=== PATIENT | female | born 1965 | race Caucasian/White ===

== ENCOUNTER 2020-07-08 11:00 | Outpatient (RCR) | payer OTHER, SELFPAY | END 2020-08-05 17:18 | disposition home or self-care (01) | LOC: PT.CARL 11:00 | PROVIDERS: Visit Provider Nurse Practitioner | DX: M62.838 Other muscle spasm (principal) | CPT/HCPCS: 97110; 97163 ==

== ENCOUNTER → 2022-03-20 10:43 | Outpatient (CLI) | payer OTHER, SELFPAY ==
--- NOTE | 2022-03-20 10:47 | XR_ITS ---
FINAL REPORT CLINICAL HISTORY: RT KNEE PAIN, medial knee pain FINDINGS: RIGHT KNEE Three views of the right knee reveal no evidence of fracture or dislocation. The bony alignment is normal. There are mild degenerative changes. There is no evidence of joint effusion. No localized soft tissue abnormality is identified. IMPRESSION: Mild degenerative change with no acute bony abnormality. Reviewed, Interpreted and Dictated by Sebastián Denis III, MD Transcribed by Danika Robledo Authenticated and [facility]
== END ==
PROVIDERS: PCP Nurse Practitioner; Visit Provider Nurse Practitioner
DX: M25.561 Pain in right knee (principal)
CPT/HCPCS: 73562

== ENCOUNTER 2025-01-09 10:16 | Outpatient (CLI) | payer MEDICARE, MEDICAID, SELFPAY ==
--- OUTSIDE RECORDS SUMMARY | 2025-01-01 08:38 | XMS_ITS | Encounter Summary ---
Author Organization [place] [address] Care Team Providers Care Financial Adviser Name Role Phone Unavailable Primary Care Provider Unavailabl e Reason for Referral * Mammography (Routine) - Pending Review Specialty Diagnoses / Procedures Referred By Arline vital Referred To Contact Radiology Diagnoses Encounter for screening mammogram for malignant neoplasm of breast Procedures MM MAMMO DIGITAL ROSY SCREEN Dyan Lafleur NP [address] [place] [id number] Phone: tel: Referral ID Status Reason Start Date Expiration Date V isits Requested Visits Authorized [id number] Pending Review 12/15/2024 12/15/2026 1 1 Reason for Visit * Mammography (Routine) - Pending Review Specialty Diagnoses / Procedures Referred By Arline vital Referred To Contact Radiology Diagnoses Encounter for screening mammogram for malignant neoplasm of breast Procedures MM MAMMO DIGITAL ROSY SCREEN Dyan Lafleur NP [address] [place] [address] Phone: tel: Referral ID Status Reason Start Date Expiration Date V isits Requested Visits Authorized [id number] Pending Review 12/15/2024 12/15/2026 1 1 Encounter Details Date Type Department Care Team (Latest Contact Info) Description 01/01/2025 8:38 AM EDT - 01/01/2025 11:59 PM EDT Hospital Encounter Mobile Mammography Other Location View online schedule for mobile van location [phone] Dyan Brandt, RADHA [address] [place] [id number] Encounter for screening mammogram for malignant neoplasm of breast Discharge Disposition: Home or Self Care Social History Tobacco Use Types Packs/Day Years Used Date Smoking Tobacco: Never Assessed Comments No Sex and Gender Information Value Date Recorded Sex Assigned at Not on file Legal Sex Female 11:49 AM EDT Gender Identity Not on file Sexual Orientation Not on file documented as of this encounter Discharge Disposition Disposition Code Departure Means Destination Home or Self Care documented in this encounter Plan of Treatment Not on file documented as of this encounter Procedures Procedure Name Priority Date/Time Associated Diagnosis Comments MM MAMMO DIGITAL ROSY SCREEN BILAT Routine 01/01/2025 9:09 AM EDT Encounter for screening mammogram for malignant neoplasm of breast documented in this encounter Results * (ABNORMAL) MM MAMMO DIGITAL ROSY SCREEN BILAT (01/01/2025 9:09 AM EDT) Anatomical Region Laterality Modality Breast Bilateral Mammography 01/01/2025 9:09 AM EDT Impressions 01/02/2025 8:14 AM EDT Incomplete: Need additional imaging evaluation ([id number]) RECOMMENDATION: Additional Imaging Breast Ultrasound Bilateral COMMENTS: Ultrasound within one month. DISCLAIMER *The patient was notified by MyChart or mail of the results for this examination. *The patient's information was entered into a reminder system with a target due date for the next breast imaging, in accordance with the [employer] and the Society of Breast Imaging recommendations. *Breast Imaging has a false negative rate of 15%. *Any patient with a palpable abnormality, unexplained by breast imaging, should be managed on a clinical basis by the attending physician. Narrative 01/02/2025 8:14 AM EDT EXAM: MM MAMMO DIGITAL ROSY SCREEN BILAT EXAM DATE: 01/01/2025 9:09 AM INDICATION: Z12.31-Encounter for screening mammogram for malignant neoplasm of [id number] COMPARISON STUDIES: Baseline TISSUE DENSITY: There are scattered areas of fibroglandular density. FINDINGS: 4 mm lobulated mass with partially circumscribed and partially indistinct margins in the anterior 3:00 RIGHT breast. Additionally, 5 mm circumscribed lobulated mass in the mid 4:00 to 5:00 LEFT breast. No suspicious microcalcifications. No areas of architectural distortion. . Procedure Note Marnie Cunningham MD - 01/02/2025 EXAM: MM MAMMO DIGITAL ROSY SCREEN BILAT EXAM DATE: 01/01/2025 9:09 AM INDICATION: Z12.31-Encounter for screening mammogram for malignantneoplasm of [id number] COMPARISON STUDIES: Baseline TISSUE DENSITY: There are scattered areas of fibroglandular density. FINDINGS: 4 mm lobulated mass with partially circumscribed and partially indistinct margins in the anterior 3:00 RIGHT breast. Additionally, 5 mm circumscribed lobulated mass in the mid 4:00 to 5:00 LEFT breast. Nosuspicious microcalcifications. No areas of architectural distortion. . IMPRESSION: Incomplete: Need additional imaging evaluation ([id number]) RECOMMENDATION: Additional Imaging Breast Ultrasound Bilateral COMMENTS: Ultrasound within one month. DISCLAIMER *The patient was notified by MyChart or mail of the results for this examination. *The patient's information was entered into a reminder system with atarget due date for the next breast imaging, in accordance with the [employer] and the Society of Breast Imaging recommendations. *Breast Imaging has a false negative rate of 15%. *Any patient with a palpable abnormality, unexplained by breast imaging,should be managed on a clinical basis by the attending physician. us Dyan Brandt CONFERENCE PRODUCER IMG MAMMOGRAPHY ORDERABLE S Final Result documented in this encounter Visit Diagnoses Diagnosis Encounter for screening mammogram for malignant neoplasm of breast Other screening mammogram documented in this encounter
--- NOTE | 2025-01-09 | US_ITS ---
PROCEDURE INFORMATION: Exam: US Right Breast, Complete US Left Breast, Complete Exam date and time: 01/09/2025 10:41 AM Age: 59 years old Clinical indication: Callback from screening for bilateral breast masses TECHNIQUE: Imaging protocol: Complete ultrasound of all four quadrants of the right breast and the retroareolar regions, including ultrasound of the axilla when performed. Complete ultrasound of all four quadrants of the left breast and the retroareolar regions, including ultrasound of the axilla when performed. COMPARISON: MG MM MAMMO DIGITAL ROSY SCREEN BILAT 01/01/2025 8:49 AM FINDINGS: ULTRASOUND: Breast ultrasound findings: Right breast ultrasound: Complicated cyst or parallel circumscribed hypoechoic mass at 1 o'clock 6 cm from nipple measuring 0.5 x 0.4 x 0.2 cm. Benign simple cysts at 2 o'clock 4 cm from nipple measuring 4 cm, likely corresponding the mammographic finding in question. Elsewhere in the right breast is unremarkable. No abnormal lymph in the axilla. Left breast ultrasound: Complicated cyst at 2 o'clock 4 cm from nipple measuring 0.5 x 0.3 x 0.3 cm. Benign intramammary lymph node at 4 o'clock 2 cm from nipple measuring 0.5 cm corresponding to mammographic question Elsewhere the left breast is unremarkable. No abnormal lymph nodes in the axilla IMPRESSION: Probable complicated cysts in both breasts are probably benign. Recommend six-month follow-up bilateral breast ultrasound to ensure stability. ASSESSMENT: BI-RADS Category 3: Probably benign.
--- OUTSIDE RECORDS SUMMARY | 2025-01-09 10:19 | XMS_ITS | Encounter Summary ---
Author Organization [place] [address] Care Team Providers Care Swabber Name Role Phone Unavailable Primary Care Provider Unavailabl e Reason for Visit * Reason Onset Date Comments Abnormal Radiology 01/02/2025 Encounter Details Date Type Department Care Team (Late st Contact Info) Description 01/02/2025 Telephone [facility] [place] [address] Brittany Cevallos, Clerical Staff Abnormal Radiology Social History Tobacco Use Types Packs/Day Years Used Date Smoking Tobacco: Never Assessed Comments No Sex and Gender Information Value Date Recorded Sex Assigned at Not on file Legal Sex Female 11:49 AM EDT Gender Identity Not on file Sexual Orientation Not on file documented as of this encounter Miscellaneous Notes * Telephone Encounter - Xin Viveros RN - 01/08/2025 12:11 PM EDT Shanti Tomsa from [facility] Care: I can confirm that all patients below are on our list and have been contacted and additional testing has been set up. Phone number for patient's to call with questions is [phone]. N will done TE at this time. * Telephone Encounter - Xin Viveros RN - 01/05/2025 11:18 AM EDT Patient is being contacted by Shanti Tomas from [facility] per Geena. Shanti has been contacted regarding patient's abnormal imaging. * Telephone Encounter - Xin Viveros RN - 01/02/2025 12:40 PM EDT Called and spoke with patient, informed of recommendation for additional breast imaging, she statesunderstanding. Patient stated that she is wanting to get additional imaging at [facility]. Patient is going to reach out to her PCP. Patient asked N to call back to verify that patient has appointment as she may forget to call us. Patient does not have MyChart. * Telephone Encounter - Brittany Cevallos, Clerical Staff - 01/02/2025 8:18 AM EDT Insurance:Medicare Ordering Provider:Dyan Brandt documented in this encounter Plan of Treatment Not on file documented as of this encounter Visit Diagnoses Not on filedocumented in this encounter
--- OUTSIDE RECORDS SUMMARY | 2025-01-09 10:19 | XMS_ITS | Data Portability ---
Author Organization [facility] [employer] [facility] Address [address] [place] [address] [place] [address] Care Team Providers Care Energy Sales Broker Name Role Phone DYAN BRANDT Primary Care Provider Unavailabl e Assessment Encounter Date Assessment Date Assessment LastModified by Organization Details LastModified Time 06/16/2024 06/16/2024 Patient presented for medication refill. Patient tolerating medication well at current dose without adverse effects. Refilled as below. Discussed plan with patient, who expressed understanding . Follow up as noted below. [place] [id number] Not available 06/16/2024 12:29:41 Plan of Treatment Reminders Order Date Submit Date Provider Last Modified By Organization Details Last Modified Time Details Appointments FOLLOW UP 15 2024 10:30A M Edilberto Brandt APRN Not available Not available Not available Lab drug screen, 14 drugs (detectim ed), urine 2024 025 [facility], [address] [place] [address], [place], [address], 08/23/2024 16:08:58 urinalysi s, dipstick 2024 025 [email or web address] [facility], [address] [place] [address], [phone], 08/12/2024 10:59:57 Referral None recorded. Procedures None recorded. Surgeries None recorded. Imaging MAMMO, screening , digital, bilateral 2024 025 [facility], [address] [place] [address], [place], [address], 01/03/2025 11:44:49 Medication Orders triamcino lone acetonide 0.1 % topical cream 2024 025 [facility], [address] [place] [address], [id number], 12/13/2024 15:00:32 prednison e 20 mg tablet 2024 025 [facility], [address] [place] [address], [id number], 12/11/2024 12:59:46 alprazola m 0.5 mg tablet 2024 025 [facility], [address] [place] [address], [id number], 12/11/2024 12:59:45 tizanidin e 4 mg tablet 2024 025 [facility], [address] [place] [address], [id number], 10/10/2024 17:53:11 alprazola m 0.5 mg tablet 2024 025 [facility], [address] [place] [address], [id number], 10/12/2024 14:33:28 amoxicill in 500 mg capsule 2024 025 [facility], [address] [place] [address], [id number], 12/11/2024 11:41:50 cefdinir 300 mg capsule 2024 025 [facility], [address] [place] [address], [id number], 10/10/2024 17:53:09 diclofena c 1 % topical gel 2023 024 [facility], [address] [place] [address], [id number], 06/16/2024 16:43:51 diclofena c sodium 50 mg tablet,de layed release 2023 [facility], [address] [place] [address], [id number], 09/14/2024 15:39:30 fluticaso ne propionat e 50 mcg/actua tion nasal spray,[employer] 2023 [facility], [address] [place] [address], [id number], 06/16/2024 13:02:05 tizanidin e 4 mg tablet 2023 [facility], [address] [place] [address], [id number], 06/16/2024 13:02:07 nystatin 100,000 unit/gram topical cream 2023 [facility], [address] [place] [address], [id number], 06/16/2024 13:02:06 alprazola m 0.5 mg tablet 2023 [facility], [address] [place] [address], [id number], 06/16/2024 13:02:08 rosuvasta tin 40 mg tablet 2023 [facility], [address] [place] [address], [id number], 06/16/2024 13:02:06 Patient TargetsNo targets recorded. Patient Instructions Encounter Date Encounter Id Patient Instructions Last Modified By Organization Details Last Modified Time 08/17/2024 [id number] controlled substance agreement* Not available 08/17/2024 11:17:33 Reason for Referral None Reported. Results Created Date Observation Date Name Description Value Unit Range Abnormal Flag Note LastModifiedBy Organization Detail LastModifiedTime 08/12/1908/12/2024 urina lysis , dipst ick Leukocytes Modera te Not Available [address], [address], 08/12/2024 10:48:13 08/12/19 25 08/12/2024 urina lysis , dipst ick Nitrite positi ve Not Available [address], [address], 08/12/2024 10:48:13 08/12/1908/12/2024 urina lysis , dipst ick Urobilinogen .2 Not Available [address], [address], 08/12/2024 10:48:13 08/12/19 25 08/12/2024 urina lysis , dipst ick Protein 2000+ Not Available [address], [address], 08/12/2024 10:48:13 08/12/1908/12/2024 urina lysis , dipst ick pH 6.5 Not Available [address], [address], 08/12/2024 10:48:13 08/12/19 25 08/12/2024 urina lysis , dipst ick Blood Modera te Not Available [address], [address], 08/12/2024 10:48:13 08/12/19 25 08/12/2024 urina lysis , dipst ick Specific [place] 1.030 Not Available [address], [address], 08/12/2024 10:48:13 08/12/19 25 08/12/2024 urina lysis , dipst ick Ketone Negati ve Not Available [address], [address], 08/12/2024 10:48:13 08/12/19 25 08/12/2024 urina lysis , dipst ick Bilirubin Negati ve Not Available [address], [address], 08/12/2024 10:48:13 08/12/1908/12/2024 urina lysis , dipst ick Glucose Negati ve Not Available [address], [address], 08/12/2024 10:48:13 08/12/19 25 08/12/2024 urina lysis , dipst ick Appearance Clear Not Available [address], [address], 08/12/2024 10:48:13 08/12/1908/12/2024 urina lysis , dipst ick Color Dolores Not Available [address], [address], 08/12/2024 10:48:13 08/17/19 25 08/23/2024 COMPL IANCE DRUG JASON SIS, UR summary report (summary) FINAL ===== ===== ===== ===== ===== ===== ===== ===== ===== ===== ===== ===== ===== === TOXAS SURE COMP DRUG JASON SIS,U R ===== ===== ===== ===== ===== ===== ===== ===== ===== ===== ===== ===== ===== === Test Resul t Flag Units Drug Prese nt Alpra zolam 41 ng/mg creat Sourc e of alpra zolam is a sched uled presc ripti on medic ation . ===== ===== ===== ===== ===== ===== ===== ===== ===== ===== ===== ===== ===== === Test Resul t Flag Units Ref Range Creat inine 51 mg/dL >=20 ===== ===== ===== ===== ===== ===== ===== ===== ===== ===== ===== ===== ===== === Decla red Medic ation s: Medic ation list was not provi ded. ===== ===== ===== ===== ===== ===== ===== ===== ===== ===== ===== ===== ===== === For clini leah consu ltati on, pleas e call . ===== ===== ===== ===== ===== ===== ===== ===== ===== ===== ===== ===== ===== === Not Available [facility] [place] [facility] [address] [place], [address], 08/23/2024 16:08:58 08/17/19 25 08/23/2024 COMPL IANCE DRUG JASON SIS, UR pdf . Not Available [facility] [place] [place] [facility] [address] [facility], [place], [address], 08/23/2024 16:08:58 01/04/20 25 01/02/2025 MAMMO , scree alisha, digit al, bilat eral No observ ation record ed. [email or web address] Not Available 2024 15:32:04 Result Notes None recorded. Problems Name Problem SNOMED Code Status Onset Date Resolution Date Notes Provider Name and Address Organization Details Recorded Time Cyst of right ovary 68950429889 577897 Active 2022 Marv Garnett II, MD [address] [place] [address], [id number] , [employer] 3 11:21:46 Uterine leiomyom a 22323981 Active 2022 Marv Garnett II, MD [address] [place] [address], [address] [place] [address] , [employer] 3 11:08:03 Streptoc occal sore throat 10547208 Active 2022 ASHA BROWN [address], [address] [place] [address] , [employer] 3 09:43:12 Candidia sis of vagina 33342111 Active 2022 ASHA BROWN [address], [address] [place] [address] , [employer] 3 09:06:00 Pain of left knee joint 43177731832 4107 Active 2022 ASHA BROWN [address], [address] [place] [address] , [employer] 3 08:45:54 Bilatera l arthriti s of knees 14700286609 48556 Active 2022 ASHA BROWN [address], [address] , [employer] 3 14:15:48 Dysuria 15974337 Active 2023 Problem Code: R30.0; Problem Code Type: ICD-10; Laura Latif denise, [employer] 4 11:12:54 Low back pain 410588597 Active 2023 Problem Code: M54.5; Problem Code Type: ICD-10; Laura walker, [employer] 4 11:13:39 Candidia sis of skin and nails Completed 201603/20/2017 Not Available [facility] 2 21:54:45 Candidia sis of skin and nails Completed 201509/07/2016 Not Available [facility] 2 21:54:45 Obesity 186265991 Active 2020 Not Available [facility] 2 21:54:45 Generali zed anxiety disorder 09749606 Active 2016 Problem Code: F41.1; Problem Code Type: ICD-10; Not Available [facility] 2 21:54:45 Acute eustachi an tube salpingi tis 461380518 Completed 201805/14/2022 Problem Code: H68.011; Problem Code Type: ICD-10; BHARTI walker, [employer] 2 11:28:30 Obstruct ion of Eustachi an tube 18201794 Completed 201805/08/2019 Not Available [facility] 2 21:54:45 Divertic ulum of Eustachi an tube 605645401 Completed 201712/14/2017 Problem Code: H69.80; Problem Code Type: ICD-10; Not Available [facility] 2 21:54:45 Otalgia of left ear Completed 201805/08/2019 Not Available [facility] 2 21:54:45 Otogenic otalgia 23939967 Completed 201805/14/2022 BHARTI walker, [employer] 2 11:28:31 Hyperten sive disorder 83219648 Active 2018 Problem Code: I10; Problem Code Type: ICD-10; Not Available [facility] 2 21:54:46 Acute pharyngi tis 931125578 Completed 201705/20/2018 Problem Code: J02.8; Problem Code Type: ICD-10; BHARTI CORTÉS null, [employer] 2 11:28:30 Acute pharyngi tis 295219511 Completed 201611/16/2016 Problem Code: J02.8; Problem Code Type: ICD-10; BHARTI CORTÉS null, [employer] 2 11:28:30 Acute pharyngi tis 548552130 Completed 202105/14/2022 BHARTI CORTÉS null, [employer] 2 11:28:30 Acute pharyngi tis 415141204 Completed 201606/15/2017 Problem Code: J02.8; Problem Code Type: ICD-10; BHARTI CORTÉS null, [employer] 2 11:28:30 Acute pharyngi tis 492613995 Completed 201804/29/2020 BHARTIALL CORTÉS null, [employer] 2 11:28:30 Influenz a 0445820 Completed 201805/14/2022 Problem Code: J10.1; Problem Code Type: ICD-10; BHARTI CORTÉS null, [employer] 2 11:28:30 Influenz a 5892164 Completed 201611/16/2016 Problem Code: J10.1; Problem Code Type: ICD-10; BHARTI CORTÉS null, [employer] 2 11:28:31 Allergic rhinitis 38408843 Completed 201804/29/2020 Problem Code: J30.9; Problem Code Type: ICD-10; Not Available [facility] 2 21:54:46 Dental arch length loss secondar y to dental caries Completed 201805/14/2022 Problem Code: K02.9; Problem Code Type: ICD-10; BHARTI walker, [employer] 2 11:28:30 Periapic al abscess without sinus tract Completed 202004/08/2021 BHARTI MURRAYNER denise, [employer] 2 11:28:30 Disorder of teeth AND/OR supporti [facility] 073678023 Completed 201805/08/2019 Problem Code: K08.9; Problem Code Type: ICD-10; Not Available [facility] 2 21:54:47 Dental caries on pit and fissure surface penetrat ing into pulp 74621437859 14087 Completed 201805/14/2022 Problem Code: K02.53; Problem Code Type: ICD-10; BHARTI walker, [employer] 2 11:28:30 Cellulit is of left upper limb 55511600009 851332 Completed 201605/08/2019 Problem Code: L03.114; Problem Code Type: ICD-10; Not Available [facility] 2 21:54:47 Atopic neuroder matitis 784661778 Completed 201505/08/2019 Problem Code: L20.81; Problem Code Type: ICD-10; Not Available [facility] 2 21:54:47 Allergic contact dermatit is caused by plant material 79791934299 078744 Completed 202105/14/2022 Problem Code: L23.7; Problem Code Type: ICD-10; BHARTI MURRAYNER denise, [employer] 2 11:28:30 Contact dermatit is caused by plants 285943481 Completed 202105/14/2022 Problem Code: L25.5; Problem Code Type: ICD-10; BHARTI MURRAYNER denise, [employer] 2 11:28:30 Idiopath ic osteoart hritis 451097527 Active 2019 Problem Code: M17.0; Problem Code Type: ICD-10; Not Available [facility] 2 21:54:48 Disorder of skin and/or subcutan eous tissue 56881496 Completed 201905/14/2022 Problem Code: L98.9; Problem Code Type: ICD-10; BHARTI walker, [employer] 2 11:28:31 Low back pain 877171844 Completed 202005/14/2022 Problem Code: M54.5; Problem Code Type: ICD-10; Laura Bhavya denise, [employer] 4 11:13:39 Spasm 79800495 Completed 201603/20/2017 Problem Code: M62.838; Problem Code Type: ICD-10; BHARTI walker, [employer] 2 11:28:30 Spasm 74362377 Completed 201805/14/2022 Problem Code: M62.838; Problem Code Type: ICD-10; BHARTI walker, [employer] 2 11:28:30 Muscle pain 86819891 Completed 201905/14/2022 Problem Code: M79.10; Problem Code Type: ICD-10; BHARTI walker, [employer] 2 11:28:31 Pain in limb 99556981 Completed 202005/14/2022 BHARTI walker, [employer] 2 11:28:31 Urinary tract infectio us disease 53388988 Completed 202005/14/2022 Problem Code: N39.0; Problem Code Type: ICD-10; BHARTI walker, [employer] 2 11:28:31 Dysuria 50937746 Completed 202004/08/2021 Problem Code: R30.0; Problem Code Type: ICD-10; Laura Deal denise, [employer] 4 11:12:54 Dysuria 58115081 Completed 202005/14/2022 Problem Code: R30.0; Problem Code Type: ICD-10; Laura walker, [employer] 4 11:12:54 Chronic fatigue syndrome 20106107 Completed 202004/08/2021 Problem Code: R53.82; Problem Code Type: ICD-10; Not Available [facility] 2 21:54:50 Multiple injuries 232473990 Completed 201605/14/2022 Problem Code: T07; Problem Code Type: ICD-10; BHARTI walker, [employer] 2 11:28:30 General examinat ion of patient Completed 201905/14/2022 BHARTI walker, [employer] 2 11:28:30 General examinat ion of patient Completed 202101/16/2022 BHARTI walker, [employer] 2 11:28:30 Screenin g mammogra phy Completed 201805/14/2022 Problem Code: Z12.31; Problem Code Type: ICD-10; BHARTI walker, [employer] 2 11:28:30 Disorder of upper respirat ory system 941333130 Completed 201604/30/2017 Problem Code: J06.9; Problem Code Type: ICD-10; Not Available [facility] 2 21:54:52 Periapic al abscess without sinus tract Completed 202005/14/2022 BHARTI walker, [employer] 2 11:28:30 Body mass index 30+ - obesity 262645297 Active 2018 Problem Code: Z68.34; Problem Code Type: ICD-10; Not Available [facility] 2 21:54:52 Body mass index 30+ - obesity 680860723 Completed 201804/29/2020 Problem Code: Z68.35; Problem Code Type: ICD-10; Not Available [facility] 2 21:54:53 Acute lymphang itis of lower leg Completed 201605/08/2019 Not Available [facility] 2 21:54:53 Current drug user 466651978 Active 2020 Problem Code: Z79.899; Problem Code Type: ICD-10; Not Available [facility] 2 21:54:54 Muscle contract ure 64215284 Completed 201603/20/2017 Problem Code: M62.40; Problem Code Type: ICD-10; Not Available [facility] 2 21:54:54 Generali zed anxiety disorder 44372284 Completed 201712/12/2020 Problem Code: 300.02; Problem Code Type: ICD-9; Not Available [facility] 2 21:54:54 Generali zed anxiety disorder 97519214 Completed 201512/12/2020 Problem Code: 300.02; Problem Code Type: ICD-9; Not Available [facility] 2 21:54:55 Dysfunct ion of eustachi an tube 37039360 Completed 201712/14/2017 Problem Code: 381.81; Problem Code Type: ICD-9; Not Available [facility] 2 21:54:55 Influenz a with respirat ory manifest ation other than pneumoni a Completed 201611/16/2016 Problem Code: 487.1; Problem Code Type: ICD-9; Not Available [facility] 2 21:54:55 Nonvenom ous insect bite of multiple sites 727410039 Completed 201612/12/2020 Problem Code: 919.4; Problem Code Type: ICD-9; Not Available [facility] 2 21:54:56 Cellulit is and abscess of upper arm 349855312 Completed 201612/12/2020 Problem Code: 682.3; Problem Code Type: ICD-9; Not Available [facility] 2 21:54:56 Body mass index 30+ - obesity 757705619 Completed 202010/17/2020 Problem Code: Z68.35; Problem Code Type: ICD-10; Not Available [facility] 21:54:56 Acute upper respirat ory infectio n of multiple sites Completed 201604/30/2017 Problem Code: 465.8; Problem Code Type: ICD-9; Not Available [facility] 2 21:54:57 Atopic dermatit is 53769196 Completed 201512/12/2020 Problem Code: 691.8; Problem Code Type: ICD-9; Not Available [facility] 21:54:57 Problem Notes None recorded. Medical Equipment None Reported. Allergies Allergen ID Allergen Name Allergen Category Reaction Reaction Severity Criticality Documentation Date Start Date Code Code System Note Provider Name and Address Organization Details Recorded Time 26529 Substance with sulfonami de structure and antibacte rial mechanism of action (substanc e) medicatio n Not available Not available Not available 03/17/2022 74891 8003 SNOMED BHARTI walker, [employer] 2 11:27:25 78541 ciproflox acin medicatio n Not available Not available Not available 06/16/2024 2551 RxNorm Svitlana [employer], [employer] 4 10:29:37 Medications Name Sig Start Date Stop Date Status Note LastModified by Organization Details LastModified Time amoxicill in 500 mg capsule TAKE ONE CAPSULE BY MOUTH EVERY TWELVE HOURS FOR 10 DAYS 12/11 completed Not Available Not Available Not Available atorvasta tin 40 mg tablet TAKE 1 TABLET 1 TIME EACH DAY 09/15 completed Not Available Not Available Not Available promethaz ine-DM 6.25 mg-15 mg/5 mL oral syrup Take 1 teaspoon ful by mouth every 6 hours as needed. 09/27 completed Not Available Not Available Not Available nystatin 100,000 unit/mL oral suspensio n SWISH AND SWALLOW 4 ML 4 TIMES EACH DAY 03/17 completed Not Available Not Available Not Available triamcino lone acetonide 0.5 % topical cream APPLY A THIN FILM TO THE AFFECTED AREA OF SKIN 2 TIMES EACH DAY active Not Available Not Available No t Available cetirizin e 10 mg tablet take 1 tablet (10 mg) by oral route once daily 06/18 completed Not Available Not Available Not Available alprazola m 1 mg tablet TAKE 1/2 TABLET 2 TIMES EACH DAY 12/16 completed decrease d dose due to pt taking 0.25mg BID on her own Not Available Not Available Not Available tizanidin e 4 mg tablet TAKE 1 TABLET 1 TIME EACH DAY AT BEDTIME 2024 active Not Available Not Available Not Avai lable fluconazo le 150 mg tablet Take 1 tablet and repeat in 72 hours if symptoms are unresolv ed. 06/17 completed Not Available Not Available Not Available lisinopri l 20 mg tablet TAKE ONE TABLET BY MOUTH EVERY DAY active Not Available Not Available No t Available prednison e 20 mg tablet TAKE ONE TABLET BY MOUTH THREE TIMES DAILY FOR 3 DAYS active Not Available Not Available No t Available acetamino phen 300 mg-codein e 30 mg tablet TAKE 1 TABLET EVERY 6 HOURS NEEDED FOR PAIN 04/29 completed Not Available Not Available Not Available dextromet horphan-g uaifenesi n 10 mg-100 mg/5 mL oral syrup Take 1 teaspoon by mouth q4h prn for cough 07/05 completed Not Available Not Available Not Available ciproflox acin 500 mg tablet TAKE ONE TABLET BY MOUTH TWICE DAILY FOR 7 DAYS 06/16 completed Not Available Not Available Not Available Tamiflu 75 mg capsule Take 1 capsule( s) by mouth bid for 5 days 09/17 completed Not Available Not Available Not Available triamcino lone acetonide 0.1 % topical cream Apply thin film topicall y to affected area twice daily active Not Available Not Available No t Available amoxicill in 500 mg tablet take 1 tablet (500 mg) by oral route every 12 hours for 10 days 12/12 completed Not Available Not Available Not Available alprazola m 0.5 mg tablet TAKE 1/2 TABLET BY MOUTH TWICE DAILY active Not Available Not Available No t Available ceftriaxo ne 1 gram solution for injection Take 1 g by injectio n route. 06/16 completed Not Available Not Available Not Available amoxicill in 875 mg tablet TAKE 1 TABLET EVERY 12 HOURS FOR 10 DAYS 12/16 completed Not Available Not Available Not Available prednisol one acetate 1 % eye drops,[employer] PLACE 1 DROP INTO THE AFFECTED EYE 4 TIMES EACH DAY FOR 7 DAYS. THEN, PLACE 1 DROP INTO THE AFFECTED EYE 2 TIMES EACH DAY FOR 7 DAYS. 12/15 completed Not Available Not Available Not Available triamcino lone acetonide 0.1 % dental paste APPLY A THIN FILM TO THE AFFECTED AREA OF SKIN IN THE MOUTH 2 TIMES EACH DAY active Not Available Not Available No t Available cephalexi n 500 mg capsule TAKE 1 CAPSULE EVERY 6 HOURS FOR 10 DAYS 04/29 completed Not Available Not Available Not Available nystatin 100,000 unit/gram topical cream apply to the affected area(s) by topical route 2 times per day PRN active Not Available Not Available No t Available promethaz ine 25 mg tablet Take 1 every 6 hours as needed for nausea/v omiting. 09/17 completed Not Available Not Available Not Available nystatin- triamcino lone 100,000 unit/g-0. 1 % topical cream Apply to affected area BID. 05/14 completed Not Available Not Available Not Available lidocaine HCl 2 % mucosal solution take 15 millilit ers and swish and spit out by oral route every 3 hours PRN pain 01/16 completed Not Available Not Available Not Available diclofena c sodium 50 mg tablet,de layed release TAKE ONE TABLET BY MOUTH TWICE DAILY active Not Available Not Available No t Available methylpre dnisolone 4 mg tablets in a dose pack Take 1 dose pack by oral route. 09/15 completed Not Available Not Available Not Available Vitamin D2 1,250 mcg (50,000 unit) capsule TAKE 1 CAPSULE 1 TIME EACH WEEK 06/16 completed Not Available Not Available Not Available cefdinir 300 mg capsule Take 1 capsule every 12 hours by oral route as directed for 7 days. 10/10 completed Not Available Not Available Not Available fluticaso ne propionat e 50 mcg/actua tion nasal spray,[employer] SPRAY 1 TIME IN EACH NOSTRIL 2 TIMES EACH DAY active Not Available Not Available No t Available amoxicill in 875 mg-potass ium clavulana te 125 mg tablet TAKE 1 TABLET EVERY 12 HOURS FOR 10 DAYS 05/15 completed Not Available Not Available Not Available hydroxyzi ne pamoate 25 mg capsule TAKE 1 CAPSULE 3 TIMES EACH DAY NEEDED FOR ITCHING 10/15 completed Not Available Not Available Not Available cyclobenz aprine 5 mg tablet Take 1 tablet every 8 hours by oral route as needed. 12/16 completed Not Available Not Available Not Available rosuvasta tin 40 mg tablet TAKE ONE TABLET BY MOUTH EVERY DAY active Not Available Not Available No t Available nitrofura ntoin monohydra te/macroc rystals 100 mg capsule TAKE 1 CAPSULE EVERY 12 HOURS FOR 10 DAYS 04/28 completed Not Available Not Available Not Available chlorhexi dine gluconate 0.12 % mouthwash SWISH 15 ML FOR 2 MINUTES 2 TIMES EACH DAY AFTER BRUSHING THEN SPIT OUT 12/15 completed Not Available Not Available Not Available fluticaso ne furoate one spray in each nostril bid 09/27 completed Not Available Not Available Not Available diclofena c 1 % topical gel APPLY 2 GRAMS ONTO THE SKIN OVER THE PAINFUL AREA 4 TIMES EACH DAY 2023 active Not Available Not Available Not Avai lable baclofen 5 mg tablet TAKE ONE TABLET BY MOUTH EVERY DAY nightly AT bedtime 10/10 completed Not Available Not Available Not Available Vitals Date Recorded Body height Body mass index (BMI) Body weight Heart rate Oxygen saturation Oxygen saturation in Arterial blood by Pulse oximetry Systolic blood pressure Diastolic blood pressure Provider Name and Address Organization Details Last Updated DateTime 5 158.75 cm 32.4 kg/m2 67142.6 3 g 97 /min 95 % 95 % 109 mm[Hg] 72 mm[Hg] Laura Deal [employer] 5 10:47:32 Date Recorded Body height Body mass index (BMI) Body weight Heart rate Oxygen saturation Oxygen saturation in Arterial blood by Pulse oximetry Systolic blood pressure Diastolic blood pressure Provider Name and Address Organization Details Last Updated DateTime 5 158.75 cm 31.3 kg/m2 12027.0 7 g 78 /min 99 % 99 % 105 mm[Hg] 69 mm[Hg] Laura Latif [employer] 5 10:34:59 Date Recorded Body height Body mass index (BMI) Body weight Heart rate Oxygen saturation Oxygen saturation in Arterial blood by Pulse oximetry Systolic blood pressure Diastolic blood pressure Provider Name and Address Organization Details Last Updated DateTime 5 158.75 cm 31.9 kg/m2 51347.8 5 g 77 /min 97 % 97 % 109 mm[Hg] 72 mm[Hg] Laura Latif [employer] 5 17:01:40 Date Recorded Body height Body mass index (BMI) Body weight Heart rate Oxygen saturation Oxygen saturation in Arterial blood by Pulse oximetry Systolic blood pressure Diastolic blood pressure Provider Name and Address Organization Details Last Updated DateTime 5 158.75 cm 31.6 kg/m2 66223.4 6 g 63 /min 100 % 100 % 129 mm[Hg] 79 mm[Hg] Brittany Key [employer] 5 11:30:41 Date Recorded Body height Body mass index (BMI) Body weight Body temperature Heart rate Oxygen saturation Oxygen saturation in Arterial blood by Pulse oximetry Systolic blood pressure Diastolic blood pressure Provider Name and Address Organization Details Last Updated DateTime 4 158.75 cm 32.5 kg/m2 74327.7 3 g 98.1 [degF] 65 /min 96 % 96 % 114 mm[Hg] 77 mm[Hg] Svitlana Mendosa [employer] 4 10:35:56 Social History Question Answer Notes LastModified by Organizat ion Details LastModified Time Tobacco Smoking Status Never Smoker BHARTI MOO walker [employer]. 05/14/2022 11:30:06 Do You Have An Advance Directive? No Information n ot available 05/14/2022 Do You Wear A Helmet When Biking? Yes Information not available 06/16/2024 Are You Blind Or Do You Have Difficulty Seeing? No [email or web address] Information n ot available 05/14/2022 In The 14 Days Before Symptom Onset, Have You Had Close Contact With A Laboratory-confirm ed COVID-19 While That Case Was Ill? No [email or web address] Information n ot available 05/14/2022 In The 14 Days Before Symptom Onset, Have You Had Close Contact With A Person Who Is Under Investigation For COVID-19 While That Person Was Ill? No [email or web address] Information not available 05/14/2022 Have You Been To An Area Known To Be High Risk For COVID-19? No [email or web address] Information not available 05/14/2022 Are You Deaf Or Do You Have Serious Difficulty Hearing? No [email or web address] Information not available 05/14/2022 What Type Of Diet Are You Following? REGULAR [email or web address] Information n ot available 05/14/2022 Have There Been Any Changes To Your Family Or Social Situation? No [email or web address] Information no t available 05/14/2022 Are There Any Guns Present In Your Home? Yes [email or web address] Information not available 05/14/2022 Do You Have A Medical Power Of Hand Tool Filer? No [email or web address] Information not available 05/14/2022 What Was The Date Of Your Most Recent Tobacco Screening? 12/11/2024 [email or web address] Information not available 12/11/2024 What Is Your Relationship Status? [email or web address] Information not available 05/14/2022 Do You Use Your Seat Belt Or Car Seat Routinely? Yes [email or web address] Information not available 05/14/2022 Do You Have Smoke And Carbon Monoxide Detectors In Your Home? Yes Information not available 05/14/2022 Do You Participate In Social Media? No Information not available 06/16/2024 Do You Use Sunscreen Routinely? Yes [email or web address] Information not available 05/14/2022 Has Tobacco Cessation Counseling Been Provided? No Information not available 06/16/2024 Have You Recently Traveled Abroad? No Information not available 05/14/2022 Do You Have Difficulty Walking Or Climbing Stairs? No Information not available 05/14/2022 Are You Currently In School? No [email or web address] Information not available 05/14/2022 Do You Have Any Dietary Restrictions? Yes Information not available 06/16/2024 Sex: Unknown Functional Status Question Answer Note LastModified by Organizat ion Details LastModified Time Do you use any illicit or recreational drugs? No Information not available 06/16/2024 Do you or have you ever used any other forms of tobacco or nicotine? No [email or web address] Information not available 05/06/2023 What is your level of alcohol consumption? None [email or web address] Information not available 05/14/2022 Are you currently employed? No [email or web address] Information not available 05/14/2022 Do you have transportation difficulties? No [email or web address] Information not available 05/14/2022 Are you able to walk? YESWOREST [email or web address] Information not available 05/14/2022 Do you have difficulty doing errands alone? No [email or web address] Information not available 05/14/2022 Are you able to care for yourself? Yes [email or web address] Information not available 05/14/2022 Do you have difficulty dressing or bathing? No [email or web address] Information not available 05/14/2022 Mental Status Question Answer Note LastModified by Organizat ion Details LastModified Time Do you feel stressed (tense, restless, nervous, or anxious, or unable to sleep at night)? [id number] Information not available 06/16/2024 Do you have difficulty concentrating, remembering or making decisions? No [email or web address] Information no t available 05/14/2022 Family History Relationship Description Onset Age of this Age Resolved Age Notes LastModified by Organization Details LastModified Time Father No current problems or disability [email or web address] Not available 09:09:51 Mother No current problems or disability Not available 09:09:51 Medical History Condition Response Allergies (Food, seasonal, environmental ) Y Hospitalizations N Emergency room visit since last appointm ent. N Abuse/Domestic Violence N ADD/ADHD N Fibromyalgia Y Hypertension Y Gynecological History Statement/Question Response If Post Menopausal, Age at Menopause Abnormal Pap N Sexually Active? N On BCP's at Conception? N STIs/STDs N Date of Last Pap Smear Sexual Problems? N Age at Menarche 12 Most Recent Mammogram Obstetrics History GPAL:G 2 P 0 0 0 2 Type Value Living 2 Total 2 Immunizations Vaccine Type Date Status Note Provider Nam e and Address Organization Details Recorded Time COVID-19, mRNA, LNP-S, PF, 30 mcg/0.3 mL dose 11/28/2020 completed Cherry walker, [place] [employer] 10/30/2022 11:40:21 COVID-19, mRNA, LNP-S, PF, 30 mcg/0.3 mL dose 12/19/2020 completed Cherry walker [employer] 10/30/2022 11:40:21 COVID-19, mRNA, LNP-S, PF, 30 mcg/0.3 mL dose 08/07/2021 completed BHARTI walker, [place] [employer] 06/18/2022 11:20:50 COVID-19, mRNA, LNP-S, PF, 50 mcg/0.5 mL 07/28/2024 completed Not Available [facility] 11:22:26 Influenza, split virus, trivalent, PF 07/28/2024 completed Not Available [facility] 2024 11:22:26 Past Encounters Encounter ID Performer Location Encounter Start Date Encounter Closed Date Diagnosis/Indication Diagnosis SNOMED-CT Code Diagnosis ICD10 Code Diagnosis Note [id number] Dyan Brandt[address] [address] 05/14/2022 11:20:54 05/14/2022 12:17:04 Pain in throat 171957428 R07.0 [id number] Dyan Rikki [address] [address] 06/18/2022 11:09:11 06/18/2022 11:57:44 Long-term drug therapy 652636503 Z79.899 Hypertensive disorder 38 987747 I10 Idiopathic osteoarthritis 124193234 M17.0 Hyperlipidemia 74258472 E78.5 Anxiety disorder 7263794 06 F41.9 Allergic rhinitis 344205 04 J30.9 Low back pain 730410391 M54.50 Body mass index 30+ - obesity 242717502 Z68.34 [id number] Dyanosbaldo Brandt [address] [place] [address] 09/11/2022 12:53:33 09/11/2022 13:28:34 Blood in urine 02578953 R31.9 Acute urin michael tract infection 704444588 N39.0 Pain in pelvis 40825761 R10.2 Dysuria 51178823 R30.0 Body mass index 30+ - obesity 477085716 Z68.34 [id number] Dyan Rikki [address] [address] 09/15/2022 10:52:41 09/15/2022 11:17:08 Anxiety disorder 413084386 F41.9 Idiopathic osteoarthritis 102681003 M17.0 Allergic rhinitis 109291 04 J30.9 Hypertensive disorder 38 731306 I10 Hyperlipidemia 16910670 E78.5 Low back pain 321568554 M54.50 Candidiasis of skin 4988 3006 B37.2 Body mass index 30+ - obesity 566600271 Z68.34 [id number] Marv Garnett II, MD [facility] [address],[place] [address] 10/15/2022 10:35:47 10/15/2022 11:42:20 Cyst of right ovary 5498366716 1210273 N83.201 I reassured her that a very small fibroid is nothing to worry about. In the face of no gynecologi c symptoms mostly bleeding, and endometria l thickness of 7 mm is not something to worry about. If she were to have problems with postmenopa usal bleeding it should be biopsied. The main thing is the ovarian cyst. I am unclear exactly what the size is but both numbers are under 5 cm so the follow-up in a couple of months is a reasonable recommenda tion. We will not do anything else but we will follow-up ultrasound here in 3 months. We will see what those pictures look like and see if she is having any symptoms. If so we will address that at that time. For now I do not recommend any treatment at all. [id number] Dyan Brandt [address] [address] 10/30/2022 11:26:35 10/30/2022 12:17:21 Pruritic disorder 105605005 L29.9 Contact dermatitis 15592 004 L25.9 [id number] Dyan Brandt [address] [address] 12/15/2022 10:41:17 12/15/2022 11:14:33 Dysuria 14285980 R30.0 Acute urin michael tract infection 103662553 N39.0 Candidiasis of skin 4988 3006 B37.2 Pruritic disorder 929362 002 L29.9 Contact de rmatitis caused by urushiol from [facility] broderick 396150789 L25.5 Allergic rhinitis 963579 04 J30.9 Hypertensive disorder 38 801369 I10 Idiopathic osteoarthritis 737627307 M17.0 Hyperlipidemia 87120989 E78.5 Low back pain 345323853 M54.50 Anxiety disorder 7790875 06 F41.9 [id number] Marv Garnett II, MD [facility] [address],[place] [address] 02/19/2023 10:40:19 02/19/2023 12:00:40 Uterine leiomyoma 38446199 D25.9 She is reassured that neither of these problems needs any other follow-up. [id number] Dyan Brandt [address] [address] 03/18/2023 10:28:09 03/18/2023 10:59:54 Low back pain 382036653 M54.50 Acute urin michael tract infection 998817647 N39.0 Candidiasis of skin 4988 3006 B37.2 Anxiety disorder 6411458 06 F41.9 Dysuria 56377537 R30.0 Body mass index 30+ - obesity 955174660 Z68.34 [id number] ASHA BROWN, [facility]-[address] [address] 04/29/2023 08:57:11 04/29/2023 10:01:02 Pain in throat 464776787 R07.0 Streptococ leah sore throat 11130081 J02.0 [id number] ASHA BROWN, [place] [address] 05/06/2023 08:31:42 05/06/2023 09:08:37 Pain of left knee joint 5083126055 61761 M25.913 [id number] Dyan Brandt [place] [address] 05/11/2023 13:03:17 05/11/2023 14:31:32 Pain of left knee joint 8173660575 00190 M25.562 Body mass index 30+ - obesity 288185896 Z68.34 [id number] Dyna Brandt [place] [address] 0 06/17/2023 10:29:59 06/17/2023 13:24:43 Candidiasis of skin 35542674 B37.2 Acute urin michael tract infection 070088829 N39.0 Pain in throat 556069378 R07.0 Pain of le ft knee joint 2800971044 54856 M25.562 Anxiety disorder 06 F41.9 Idiopathic osteoarthritis 664512936 M17.0 Hypertensive disorder 38 773346 I10 Hyperlipidemia 02901431 E78.5 Low back pain 677762828 M54.50 Body mass index 30+ - obesity 984794472 Z68.34 [id number] Dyan Brandt [place] [address] 0 09/16/2023 10:27:18 09/16/2023 11:35:56 Long-term drug therapy 416490675 Z79.899 Body mass index 30+ - obesity 820783602 Z68.34 Screening for malignant neoplasm of colon 920909562 Z12.11 Acute pharyngitis 927336 003 J02.9 Anxiety disorder 4188678 06 F41.9 Pain of le ft knee joint 5502211120 94640 M25.562 Allergic rhinitis 732062 04 J30.9 Hypertensive disorder 38 460747 I10 Hyperlipidemia 19268851 E78.5 Low back pain 880614647 M54.50 [id number] [place] [address] 12/17/2023 10:31:38 12/17/2023 11:03:09 Fatigue 41563996 R53.83 Hyperlipidemia 95793962 E78.5 Long-term drug therapy 497082867 Z79.899 Vitamin D deficiency 347 84509 E55.9 Acute pharyngitis 537864 003 J02.9 Anxiety disorder 3796735 06 F41.9 Idiopathic osteoarthritis 719836605 M17.0 Pain of le ft knee joint 0660321790 01422 M25.562 Allergic rhinitis 118637 04 J30.9 Hypertensive disorder 38 121357 I10 Low back pain 607773462 M54.50 Body mass index 30+ - obesity 762903386 Z68.34 [id number] [place] [address] 03/17/2024 10:25:26 03/17/2024 11:45:43 Low back pain 822995587 M54.50 Acute urin michael tract infection 649201868 N39.0 Anxiety disorder 06 F41.9 Body mass index 30+ - obesity 038087060 Z68.34 [id number] Dyan Brandt [place] [address] 04/28/2024 08:18:29 04/28/2024 09:24:40 Sore gums 49257579 K08.89 Dental abscess 833261728 K04.7 Body mass index 30+ - obesity 006547567 Z68.34 [id number] [place] [address] 05/15/2024 13:23:33 05/15/2024 14:06:48 Dysuria 97015728 R30.0 Acute urin michael tract infection 380202357 N39.0 Body mass index 30+ - obesity 687770570 Z68.34 [id number] Dyan Brandt [address] [place] [address] 06/16/2024 10:21:17 06/16/2024 10:54:57 Candidiasis of skin 65668737 B37.2 Low back pain 613856931 M54.50 Hyperlipidemia 39947407 E78.5 Allergic rhinitis 566518 04 J30.9 Pain of le ft knee joint 6857515617 09110 M25.562 Anxiety disorder 9679140 06 F41.9 Idiopathic osteoarthritis 718901305 M17.0 Body mass index 30+ - obesity 649106956 Z68.34 [id number] [place] [address] 0 08/12/2024 10:19:33 08/12/2024 10:51:31 Dysuria 52726617 R30.0 Acute urin michael tract infection 536058329 N39.0 Body mass index 30+ - obesity 275188036 Z68.34 [id number] [place] [address] 08/17/2024 10:21:36 08/17/2024 10:52:01 Long-term drug therapy 212971192 Z79.899 Hypertensive disorder 38 294108 I10 Idiopathic osteoarthritis 743355597 M17.0 Generalize d anxiety disorder 84476186 F41.1 Body mass index 30+ - obesity 016751252 Z68.34 [id number] [place] [address] 0 10/10/2024 16:42:16 10/10/2024 17:28:53 Anxiety disorder 058360696 F41.9 Acute pharyngitis 376390 003 J02.9 Low back pain 637655948 M54.50 Body mass index 30+ - obesity 566736024 Z68.34 [id number] [place] [address] 0 12/11/2024 11:18:59 12/11/2024 11:47:14 Anxiety disorder 058709751 F41.9 Contact de [facility]mat[facility] 928018411 L23.7 Screening mammography 24 309713 Z12.31 Body mass index 30+ - obesity 645309148 Z68.31 Health Concerns Section Related Observation LastModified by Organization Detai ls LastModified Time None Recorded Concern Status LastModified by Organization Details LastModified Time None Recorded Advance Directives Directive N: Payers Insurance Date Sequence Insurance Name Policy Number Policy Florentino Covered Member ID Florentino Member ID Guarantor Name 12/10/2024 2 [place] [facility] [place] FFS/TRADITIONA L Patsy Naeem [id number] Patsy Hartley 12/10/2024 [facility] Patsy Naeem [id number] Patsy Naeem 06/28/2023 1 UNSPECIFIED REMIT PAYOR Patsy Hartley 12/10/2024 [place] [email or web address] [facility] Patsy A Naeem [id number] Patsy Naeem 12/10/2024 1 [place] Patsy A Naeem [id number] Patsy Naeem 08/14/2024 2 [facility] (MEDICAID HMO) Patsy Naeem [id number] Patsy Hartley Notes Date Note Type Note Provider Name and Address Organization Details Recorded Time 06/16/2024 text/html pt here today fo r medication refills. pt states shes doing well on current medication regime and has no new complaints today. Dyan Brandt APRN [address] [place], [address], [employer] 06/16/2024 12:30:37 08/12/2024 text/html pt here today wi th c/o dysuria x2 days. UA positive for UTI. ordered abx. educated pt on new med. pt voiced understanding. increase water, avoid soaking in baths, wipe front to back, urinate before and after sexual intercourse. return for worsening symptoms. Dyan Brandt APRN [address] [place], [address], [employer] 08/12/2024 10:54:47 08/17/2024 text/html pt here today fo r medication refills. pt states she doing well on current medication regime and has no new complaints today. Dyan Brandt APRN [address] [place], [address], [employer] 08/17/2024 11:17:56 10/10/2024 text/html 59 year old shawna quiroz presents for anxiety f/u and sore throat x 2 weeks. States she has been doing well on current regimen without AE. Will refill medications today. States she has had a sore throat x 2 weeks that she assumed was allergies but is now worsened. She tried OTC medication without relief. Tonsils 3+ with left uvula deviation. will treat with abx today. Pt agrees and will returned for worsening symptoms. Dyan Brandt APRN [address] [place], [address], [employer] 10/10/2024 17:31:18 12/11/2024 text/html pt here today fo r medication refills. pt state shes doing well on current medication regime. pt states that she has gotten into some poison johnny from her neighbors brush. it appears that pt has on her left forehead, right facial cheek, RUE and BLE. i will order triamcinolone cream and steroids. educated pt on new meds. pt voiced understanding. cool showers and/or compresses, benadryl PRN for itch relief. Dyan Brandt APRN [address] [place], [address], [employer] 12/11/2024 12:01:49 OBGyn Episode No OBEpisode recorded.
--- OUTSIDE RECORDS SUMMARY | 2025-01-09 10:19 | XMS_ITS | Clinical Summary ---
Author Organization [facility] Address [address] [place] [address] Phone Care Team Providers Care Clearing Distribution Clerk Name Role Phone Unavailable Primary Care Provider Unavailabl e Encounters Date Type Department Care Team Description 01/02/2025 Telephone [facility] [place] [address] Brittany Cevallos, Clerical Staff Abnormal Radiology 01/01/2025 8:38 AM EDT - 01/01/2025 11:59 PM EDT Hospital Encounter Mobile Mammography Other Location View online schedule for mobile van location [phone] Dyan Brandt, RADHA Encounter for screening mammogram for malignant neoplasm of breast Discharge Disposition: Home or Self Care from Last 3 Months Social History Tobacco Use Types Packs/Day Years Used Date Smoking Tobacco: Never Assessed Comments No Sex and Gender Information Value Date Recorded Sex Assigned at Not on file Legal Sex Female 11:49 AM EDT Gender Identity Not on file Sexual Orientation Not on file Obstetrics History Para Term AB IAB SAB Ectopic Multiple Livin g Live Births 2 Plan of Treatment Health Maintenance Due Date Last Done Comments Wellness Exam Medicare 1970 DTaP/TDaP/Td (1 - Tdap) 1986 Hepatitis B Vaccine (1 of 3 - 19+ 3-dose series) 1986 Cervical Cancer Screening 1988 Pap Smear 1988 HPV/Pap Cotest 1997 Cologuard 2012 Colon Cancer Screening 2012 Colonoscopy 2012 FIT 2012 Sigmoidoscopy 2012 Virtual Colonography 2012 Pneumococcal Vaccine 50+ (1 of 1 - PCV) 2017 Zoster (1 of 2) 2017 Influenza Vaccine (#1) 2025 07/28/2024 Breast Cancer Screening 01/01/2027 01/01/2025 COVID-19 Vaccine Completed 07/28/2024, , 12/19/2020, Additional history exists Meningococcal B Vaccine Aged Out No l onger eligible based on patient's age to complete this topic Procedures Procedure Name Priority Date/Time Associated Diagnosis Comments MM MAMMO DIGITAL ROSY SCREEN BILAT Routine 01/01/2025 9:09 AM EDT Encounter for screening mammogram for malignant neoplasm of breast from Last 3 Months Results * (ABNORMAL) MM MAMMO DIGITAL ROSY SCREEN BILAT (01/01/2025 9:09 AM EDT) Anatomical Region Laterality Modality Breast Bilateral Mammography 01/01/2025 9:09 AM EDT Impressions 01/02/2025 8:14 AM EDT Incomplete: Need additional imaging evaluation ([id number]-5) RECOMMENDATION: Additional Imaging Breast Ultrasound Bilateral COMMENTS: Ultrasound within one month. DISCLAIMER *The patient was notified by MyChart or mail of the results for this examination. *The patient's information was entered into a reminder system with a target due date for the next breast imaging, in accordance with the [place] [employer] and the Society of [...] for screening mammogram for malignant neoplasm of [id number] COMPARISON STUDIES: Baseline TISSUE DENSITY: There are [...] Z12.31-Encounter for screening mammogram for malignantneoplasm of [id number]-YVM-[id number]-CM COMPARISON STUDIES: Baseline TISSUE DENSITY: There are scattered areas of fibroglandular density. FINDINGS: 4 mm lobulated mass with partially circumscribed and partially indistinct margins in the anterior 3:00 RIGHT breast. Additionally, 5 mm circumscribed lobulated mass in the mid 4:00 to 5:00 LEFT breast. Nosuspicious microcalcifications. No areas of architectural distortion. . IMPRESSION: Incomplete: Need additional imaging evaluation ([id number]) RECOMMENDATION: Additional Imaging Breast Ultrasound Bilateral COMMENTS: Ultrasound within one month. DISCLAIMER *The patient was notified by MyChart or mail of the results for this examination. *The patient's information was entered into a reminder system with atarget due date for the next breast imaging, in accordance with the [employer] [employer] and the Society of Breast Imaging recommendations. *Breast Imaging has a false negative rate of 15%. *Any patient with a palpable abnormality, unexplained by breast imaging,should be managed on a clinical basis by the attending physician. Dyan Brandt NP IMG MAMMOGRAPHY ORDERABLE S Final Result from Last 3 Months Insurance [place] [address] [place]ICAID [place]
--- OUTSIDE RECORDS SUMMARY | 2025-01-09 10:19 | XMS_ITS | Continuity of Care Document ---
[facility] Organization [facility] Address [address] [place] [id number] Care Team Providers Care Box Stapler Name Role Phone DYAN BRANDT Primary Care Provider Unavailabl e Assessment No assessment recorded. Plan of Treatment Reminders Order Date Submit Date Provider Last Modified By Organization Details Last Modified Time Details Appointments FOLLOW UP 15 2024 10:30A M MDavid Brandt APRN Not available Not available Not available Lab None recorded. Referral None recorded. Procedures None recorded. Surgeries None recorded. Imaging MAMMO, screening , digital, bilateral 2024 025 [facility], [address] [place] [address], [id number], 01/03/2025 11:44:49 Medication Orders triamcino lone acetonide 0.1 % topical cream 2024 025 [facility], [address] [place] [address], [id number], 12/13/2024 15:00:32 prednison e 20 mg tablet 2024 025 [facility], [address] [place] [address], [id number], 12/11/2024 12:59:46 alprazola m 0.5 mg tablet 2024 025 [facility], [address] [place] [address], [id number], 12/11/2024 12:59:45 Patient TargetsNo targets recorded. Patient InstructionsNo instructions recorded. Reason for Referral None Reported. Results Created Date Observation Date Name Description Value Unit Range Abnormal Flag Note LastModifiedBy Organization Detail LastModifiedTime 01/04/2001/02/2025 MAMMO , ericke alisha, digit al, bilat eral No observ ation record ed. [email or web address] Not Available 2024 15:32:04 Result Notes None recorded. Problems Name Problem SNOMED Code Status Onset Date Resolution Date Notes Provider Name and Address Organization Details Recorded Time Cyst of right ovary 93293703102 761815 Active 2022 Marv Garnett II, MD [address] [place] [address], [phone] , [email or web address] 3 11:21:46 Uterine leiomyom a 73765442 Active 2022 Marv Garnett II, MD [address] [place] [address], [address] [place] [address] , [employer] 3 11:08:03 Streptoc occal sore throat 59846199 Active [address], [address] [place] [address] , [employer] 09:43:12 Candidia sis of vagina 15537720 Active 2022 ASHA BROWN [address], [address] [place] [address] , [employer] 09:06:00 Pain of left knee joint 63637355822 4107 Active [address], [address] [place] [address] , [employer] 3 08:45:54 Bilatera l arthriti s of knees 92516578784 53779 Active 2022 ASHA BROWN [address], [address] , [employer] 14:15:48 Dysuria 93030312 Active 2023 Problem Code: R30.0; Problem Code Type: ICD-10; Laura Latif denise, [employer] 4 11:12:54 Low back pain 221661419 Active 2023 Problem Code: M54.5; Problem Code Type: ICD-10; Laura Latif denise, [employer] 4 11:13:39 Candidia sis of skin and nails Completed 201603/20/2017 Not Available [facility] 2 21:54:45 Candidia sis of skin and nails Completed 201509/07/2016 Not Available [facility] 2 21:54:45 Obesity 400192833 Active 2020 Not Available [facility] 2 21:54:45 Generali zed anxiety disorder 19538154 Active 2016 Problem Code: F41.1; Problem Code Type: ICD-10; Not Available [facility] 2 21:54:45 Acute eustachi an tube salpingi tis 936129684 Completed 201805/14/2022 Problem Code: H68.011; Problem Code Type: ICD-10; BHARTI walker, [employer] 2 11:28:30 Obstruct ion of Eustachi an tube 13005496 Completed 201805/08/2019 Not Available [facility] 2 21:54:45 Divertic ulum of Eustachi an tube 505505332 Completed 201712/14/2017 Problem Code: H69.80; Problem Code Type: ICD-10; Not Available [facility] 2 21:54:45 Otalgia of left ear Completed 201805/08/2019 Not Available [facility] 2 21:54:45 Otogenic otalgia 31440130 Completed 201805/14/2022 BHARTI walker [employer] 2 11:28:31 Hyperten sive disorder 40474827 Active 2018 Problem Code: I10; Problem Code Type: ICD-10; Not Available [facility] 2 21:54:46 Acute pharyngi tis 491141828 Completed 201705/20/2018 Problem Code: J02.8; Problem Code Type: ICD-10; BHARTI CORTÉS null, [employer] 2 11:28:30 Acute pharyngi tis 339567590 Completed 201611/16/2016 Problem Code: J02.8; Problem Code Type: ICD-10; BHARTI CORTÉS null, [employer] 2 11:28:30 Acute pharyngi tis 692998438 Completed 202105/14/2022 BHARTIALL CORTÉS null, [employer] 2 11:28:30 Acute pharyngi tis 928855879 Completed 201606/15/2017 Problem Code: J02.8; Problem Code Type: ICD-10; BHARTI CORTÉS null, [employer] 2 11:28:30 Acute pharyngi tis 585109538 Completed 201804/29/2020 BHARTIALL MURRAYNER null, [employer] 2 11:28:30 Influenz a 9198363 Completed 201805/14/2022 Problem Code: J10.1; Problem Code Type: ICD-10; BHARTI CORTÉS null, [employer] 2 11:28:30 Influenz a 2933718 Completed 201611/16/2016 Problem Code: J10.1; Problem Code Type: ICD-10; BHARTIALL CORTÉS null, [employer] 2 11:28:31 Allergic rhinitis 76602820 Completed 201804/29/2020 Problem Code: J30.9; Problem Code Type: ICD-10; Not Available [facility] 2 21:54:46 Dental arch length loss secondar y to dental caries Completed 201805/14/2022 Problem Code: K02.9; Problem Code Type: ICD-10; BHARTI walker, [employer] 2 11:28:30 Periapic al abscess without sinus tract Completed 202004/08/2021 BHARTI MURRAYNER denise, [employer] 2 11:28:30 Disorder of teeth AND/OR supporti [facility] 942313678 Completed 201805/08/2019 Problem Code: K08.9; Problem Code Type: ICD-10; Not Available [facility] 2 21:54:47 Dental caries on pit and fissure surface penetrat ing into pulp 83421063425 39745 Completed 201805/14/2022 Problem Code: K02.53; Problem Code Type: ICD-10; BHARTI walker, [employer] 2 11:28:30 Cellulit is of left upper limb 46695028192 678378 Completed 201605/08/2019 Problem Code: L03.114; Problem Code Type: ICD-10; Not Available [facility] 2 21:54:47 Atopic neuroder matitis 397990581 Completed 201505/08/2019 Problem Code: L20.81; Problem Code Type: ICD-10; Not Available [facility] 2 21:54:47 Allergic contact dermatit is caused by plant material 30116220539 551967 Completed 202105/14/2022 Problem Code: L23.7; Problem Code Type: ICD-10; BHARTI MURRAYNER denise, [employer] 2 11:28:30 Contact dermatit is caused by plants 760698577 Completed 202105/14/2022 Problem Code: L25.5; Problem Code Type: ICD-10; BHARTI MURRAYNER denise, [employer] 2 11:28:30 Idiopath ic osteoart hritis 158082126 Active 2019 Problem Code: M17.0; Problem Code Type: ICD-10; Not Available [employer] 2 21:54:48 Disorder of skin and/or subcutan eous tissue 80907669 Completed 201905/14/2022 Problem Code: L98.9; Problem Code Type: ICD-10; BHARTI walker, [employer] 2 11:28:31 Low back pain 374804306 Completed 202005/14/2022 Problem Code: M54.5; Problem Code Type: ICD-10; Laura Latif denise, [employer] 4 11:13:39 Spasm 44732252 Completed 201603/20/2017 Problem Code: M62.838; Problem Code Type: ICD-10; BHARTI walker, [employer] 2 11:28:30 Spasm 87708172 Completed 201805/14/2022 Problem Code: M62.838; Problem Code Type: ICD-10; BHARTI walker, [employer] 2 11:28:30 Muscle pain 22159299 Completed 201905/14/2022 Problem Code: M79.10; Problem Code Type: ICD-10; BHARTI walker, [employer] 2 11:28:31 Pain in limb 53818180 Completed 202005/14/2022 BHARTI walker, [employer] 2 11:28:31 Urinary tract infectio us disease 74551407 Completed 202005/14/2022 Problem Code: N39.0; Problem Code Type: ICD-10; BHARTI walker, [employer] 2 11:28:31 Dysuria 83863468 Completed 202004/08/2021 Problem Code: R30.0; Problem Code Type: ICD-10; Laura Latif denise, [employer] 4 11:12:54 Dysuria 77387139 Completed 202005/14/2022 Problem Code: R30.0; Problem Code Type: ICD-10; Laura [place] walker, [employer] 4 11:12:54 Chronic fatigue syndrome 44393970 Completed 202004/08/2021 Problem Code: R53.82; Problem Code Type: ICD-10; Not Available [facility] 2 21:54:50 Multiple injuries 550681666 Completed 201605/14/2022 Problem Code: T07; Problem Code Type: ICD-10; BHARTI walker, [employer] 2 11:28:30 General examinat ion of patient Completed 201905/14/2022 BHARTI MURRAYNER denise, [employer] 2 11:28:30 General examinat ion of patient Completed 202101/16/2022 BHARTI MURRAYNER denise, [employer] 2 11:28:30 Screenin g mammogra phy Completed 201805/14/2022 Problem Code: Z12.31; Problem Code Type: ICD-10; BHARTI walker, [employer] 2 11:28:30 Disorder of upper respirat ory system 641223647 Completed 201604/30/2017 Problem Code: J06.9; Problem Code Type: ICD-10; Not Available [facility] 2 21:54:52 Periapic al abscess without sinus tract Completed 202005/14/2022 BHARTI MURRAYNER denise, [employer] 2 11:28:30 Body mass index 30+ - obesity 782971500 Active 2018 Problem Code: Z68.34; Problem Code Type: ICD-10; Not Available [facility] 2 21:54:52 Body mass index 30+ - obesity 451149405 Completed 201804/29/2020 Problem Code: Z68.35; Problem Code Type: ICD-10; Not Available [facility] 2 21:54:53 Acute lymphang itis of lower leg Completed 201605/08/2019 Not Available [facility] 2 21:54:53 Current drug user 493915243 Active 2020 Problem Code: Z79.899; Problem Code Type: ICD-10; Not Available [facility] 2 21:54:54 Muscle contract ure 51639517 Completed 201603/20/2017 Problem Code: M62.40; Problem Code Type: ICD-10; Not Available [facility] 2 21:54:54 Generali zed anxiety disorder 27143439 Completed 201712/12/2020 Problem Code: 300.02; Problem Code Type: ICD-9; Not Available [facility] 2 21:54:54 Generali zed anxiety disorder 54484354 Completed 201512/12/2020 Problem Code: 300.02; Problem Code Type: ICD-9; Not Available [facility] 2 21:54:55 Dysfunct ion of eustachi an tube 67301763 Completed 201712/14/2017 Problem Code: 381.81; Problem Code Type: ICD-9; Not Available [facility] 2 21:54:55 Influenz a with respirat ory manifest ation other than pneumoni a Completed 201611/16/2016 Problem Code: 487.1; Problem Code Type: ICD-9; Not Available [facility] 2 21:54:55 Nonvenom ous insect bite of multiple sites 979448925 Completed 201612/12/2020 Problem Code: 919.4; Problem Code Type: ICD-9; Not Available [facility] 2 21:54:56 Cellulit is and abscess of upper arm 721326212 Completed 201612/12/2020 Problem Code: 682.3; Problem Code Type: ICD-9; Not Available [facility] 2 21:54:56 Body mass index 30+ - obesity 862212329 Completed 202010/17/2020 Problem Code: Z68.35; Problem Code Type: ICD-10; Not Available [facility] 2 21:54:56 Acute upper respirat ory infectio n of multiple sites Completed 201604/30/2017 Problem Code: 465.8; Problem Code Type: ICD-9; Not Available [facility] 2 21:54:57 Atopic dermatit is 15978796 Completed 201512/12/2020 Problem Code: 691.8; Problem Code Type: ICD-9; Not Available [facility] 21:54:57 Problem Notes None recorded. Medical Equipment None Reported. Allergies Allergen ID Allergen Name Allergen Category Reaction Reaction Severity Criticality Documentation Date Start Date Code Code System Note Provider Name and Address Organization Details Recorded Time 75953 Substance with sulfonami de structure and antibacte rial mechanism of action (substanc e) medicatio n Not available Not available Not available 03/17/2022 95431 8003 SNOMED BHARTI CORTÉS [employer], [employer] 2 11:27:25 54735 ciproflox acin medicatio n Not available Not available Not available 06/16/2024 2551 RxNorm Svitlana walker, [employer] 4 10:29:37 Medications Name Sig Start [...] Updated DateTime 5 158.75 cm 31.6 kg/m2 32249.4 6 g 63 /min 100 % 100 % 129 mm[Hg] 79 mm[Hg] Brittany Key [employer] 5 11:30:41 Social History Question Answer Notes LastModified by Organizat ion Details LastModified Time Tobacco Smoking Status Never Smoker BHARTI walker [employer] 05/14/2022 11:30:06 Do You Have An Advance Directive? No [email or web address] Information n ot available 05/14/2022 Do You Wear A Helmet When Biking? Yes Information not available 06/16/2024 Are You Blind Or Do You Have Difficulty Seeing? No [email or web address] Information n ot available 05/14/2022 In The 14 Days Before Symptom Onset, Have You Had Close Contact With A Laboratory-confirm ed COVID-19 While That Case Was Ill? No [email or web address] Information n ot available 05/14/2022 In The 14 Days Before Symptom Onset, Have You Had Close Contact With A Person Who Is Under Investigation For COVID-19 While That Person Was Ill? No Information not available 05/14/2022 Have You Been To An Area Known To Be High Risk For COVID-19? No [email or web address] Information not available 05/14/2022 Are You Deaf Or Do You Have Serious Difficulty Hearing? No [email or web address] Information not available 05/14/2022 What Type Of Diet Are You Following? REGULAR [email or web address] Information n ot available 05/14/2022 Have There Been Any Changes To Your Family Or Social Situation? No [email or web address] Information no t available 05/14/2022 Are There Any Guns Present In Your Home? Yes [email or web address] Information not available 05/14/2022 Do You Have A Medical Power Of Curtain Stretcher? No [email or web address] Information not available 05/14/2022 What Was The Date Of Your Most Recent Tobacco Screening? 12/11/2024 [email or web address] Information not available 12/11/2024 What Is Your Relationship Status? [email or web address] Information not available 05/14/2022 Do You Use Your Seat Belt Or Car Seat Routinely? Yes [email or web address] Information not available 05/14/2022 Do You Have Smoke And Carbon Monoxide Detectors In Your Home? Yes Information not available 05/14/2022 Do You Participate In Social Media? No Information not available 06/16/2024 Do You Use Sunscreen Routinely? Yes [email or web address] Information not available 05/14/2022 Has Tobacco Cessation Counseling Been Provided? No Information not available 06/16/2024 Have You Recently Traveled Abroad? No [email or web address] Information not available 05/14/2022 Do You Have Difficulty Walking Or Climbing Stairs? No [email or web address] Information not available 05/14/2022 Are You Currently In School? No [email or web address] Information not available 05/14/2022 Do You Have Any Dietary Restrictions? Yes Information not available 06/16/2024 Sex: Unknown Functional Status Question Answer Note LastModified by Organizat ion Details LastModified Time Do you use any illicit or recreational drugs? No Information not available 06/16/2024 Do you or have you ever used any other forms of tobacco or nicotine? No [email or web address] Information not available 05/06/2023 What is your level of alcohol consumption? None [email or web address] Information not available 05/14/2022 Are you currently employed? No [email or web address] Information not available 05/14/2022 Do you have transportation difficulties? No [email or web address] Information not available 05/14/2022 Are you able to walk? YESWOREST [email or web address] Information not available 05/14/2022 Do you have difficulty doing errands alone? No Information not available 05/14/2022 Are you able to care for yourself? Yes [email or web address] Information not available 05/14/2022 Do you have difficulty dressing or bathing? No [email or web address] Information not available 05/14/2022 Mental Status Question Answer Note LastModified by Organizat ion Details LastModified Time Do you feel stressed (tense, restless, nervous, or anxious, or unable to sleep at night)? [id number] Information not available 06/16/2024 Do you have difficulty concentrating, remembering or making decisions? No Information no t available 05/14/2022 Family History Relationship Description Onset Age of this Age Resolved Age Notes LastModified by Organization Details LastModified Time Father No current problems or disability Not available 09:09:51 Mother No current problems or disability [email or web address] Not available 09:09:51 Medical History Condition Response Allergies (Food, seasonal, environmental ) Y Emergency room visit since last appointm ent. N Fibromyalgia Y Hospitalizations N ADD/ADHD N Abuse/Domestic Violence N Hypertension Y Gynecological History Statement/Question Response If [...] PF, 30 mcg/0.3 mL dose 11/28/2020 completed Cherryalok Silverman [employer] [place] [email or web address] 10/30/2022 11:40:21 COVID-19, mRNA, LNP-S, PF, 30 mcg/0.3 mL dose 12/19/2020 completed Cherry walker, [place] [employer] [email or web address] 10/30/2022 11:40:21 COVID-19, mRNA, LNP-S, PF, 30 mcg/0.3 mL dose 08/07/2021 completed BHARTI walker, [place] [email or web address] 06/18/2022 11:20:50 COVID-19, mRNA, LNP-S, PF, 50 mcg/0.5 mL 07/28/2024 completed Not Available [facility] 11:22:26 Influenza, split virus, trivalent, PF 07/28/2024 completed Not Available [facility] 2024 11:22:26 Past Encounters Encounter ID Performer Location Encounter Start Date Encounter Closed Date Diagnosis/Indication Diagnosis SNOMED-CT Code Diagnosis ICD10 Code Diagnosis Note [id number] Dyan Brandt [address] [address] 12/11/2024 11:18:59 12/11/2024 11:47:14 Anxiety disorder 882093107 F41.9 Contact de rmatitis caused by urushiol from [facility] broderick 904536704 L23.7 Screening mammography 24 939271 Z12.31 Body mass index 30+ - obesity 699304927 Z68.31 Health Concerns Section Related Observation LastModified by Organization Detai ls LastModified Time None Recorded Concern Status LastModified by Organization Details LastModified Time None Recorded Payers Encounter Date Sequence Insurance Name Policy Number Policy Florentino Covered Member ID Florentino Member ID Guarantor Name 12/11/2024 1 [place] Patsy Hartley [id number] Patsy Hartley 12/11/2024 2 MEDICAID-[facility] - FFS/TRADITIO NAL Patsy Hartley [id number] Patsy Hartley Notes Date Note Type Note Provider Name and Address Organization Details Recorded Time 12/11/2024 text/html pt here today fo r [...] compresses, benadryl PRN for itch relief. Dyan Brandt, NETWORK OPERATIONS TECHNICIAN [address] [facility], [place], [address], [facility] [employer] 12/11/2024 12:01:49 OBGyn Episode No OBEpisode recorded.
== END 2025-01-09 23:59 | disposition home or self-care (01) ==
LOC: RAD 10:17
PROVIDERS: PCP Nurse Practitioner; Visit Provider Nurse Practitioner
DX: N63.12 Unspecified lump in the right breast, upper inner quadrant (principal); N60.02 Solitary cyst of left breast; N60.01 Solitary cyst of right breast; R59.0 Localized enlarged lymph nodes
CPT/HCPCS: 76641